=== PATIENT | male | born 1995 | race African-American/Black ===

== ENCOUNTER 2017-03-01 16:51 | Emergency (ER) | payer OTHER ==
[~2017-03-01] VITALS: Ht 185.4 cm; Wt 99.8 kg
[2017-03-01 16:52] VITALS: BP 134/75
[2017-03-01] MEDS ORDERED: AZITHROMYCIN 250 MG TAB PO ONE (18:15)
[2017-03-01] MEDS ORDERED: cefTRIAXone SOD 250 MG VIAL (J0696) IM ONE (18:15)
== END 2017-03-01 18:36 | disposition home or self-care (01) ==
LOC: M ED 18:30
DX: Z20.2 Contact with and (suspected) exposure to infections with a predominantly sexual mode of transmission (principal)
CPT/HCPCS: 87491; 87591; 96372; 99282; J0696

== ENCOUNTER 2018-11-30 14:53 | Emergency (ER) | payer OTHER ==
[~2018-11-30] VITALS: Ht 185.4 cm; Wt 100.0 kg
[2018-11-30] MEDS ORDERED: VALA1TAB2 PO (16:56)
[2018-11-30 17:07] VITALS: BP 155/82
[2018-11-30 18:09] LABS: CHLAMYDIA DNA AMPLIFICATION NEGATIVE (NEGATIVE); GC DNA AMPLIFICATION NEGATIVE (NEGATIVE)
[2018-12-02 11:09] LABS: HEPATITIS B SURFACE ANTIBODY POSITIVE (POSITIVE); HEPATITIS B SURFACE ANTIGEN NEGATIVE (NEGATIVE); HEPATITIS C VIRUS ABY INDEX 0.1 INDEX (<0.8); HIV 1&2 SCREEN CENTAUR NEGATIVE (NEGATIVE)
[2018-12-06 00:06] LABS: HSV TYPE I IgG SPECIFIC <0.91 index (0.00-0.90); HSV TYPE I IgM AB <1:10 titer (<1:10); HSV TYPE II IgG SPECIFIC <0.91 index (0.00-0.90); HSV TYPE II IgM ABY <1:10 titer (<1:10)
== END 2018-11-30 17:17 | disposition home or self-care (01) ==
LOC: M ED 14:53 → EDBD 14:53 → M ED 17:17
DX: A60.02 Herpesviral infection of other male genital organs (principal); Z87.438 Personal history of other diseases of male genital organs; Z87.891 Personal history of nicotine dependence